=== PATIENT | male | born 1970 | race Caucasian/White ===

== ENCOUNTER 2020-08-29 20:39 | Observation (INO) ==
[2020-08-29 21:50] LABS: Basophils # 0.1 K/mcL (0.0-0.2); Basophils % 0.6 %; Eosinophils # 0.1 K/mcL (0.0-0.6); Eosinophils % 1.2 %; Hemoglobin 15.2 g/dL (12.9-16.9); Immature Granulocytes % 0.4 % (0-4); Lymphocytes # 3.6 K/mcL (0.6-4.6); Lymphocytes % 36.3 %; Mean Corpuscular HGB Conc 34.5 g/dL (31.6-35.5); Mean Corpuscular Hemoglobin 32.4 pg (28.0-33.3); Mean Corpuscular Volume 93.8 fL (83.0-100.0); Mean Platelet Volume 10.7 fL (9.4-12.4); Monocytes # 0.5 K/mcL (0.0-1.3); Neutrophils # 5.7 K/mcL (1.6-8.9); Platelet Count 153 K/mcL (140-400); Red Blood Count 4.69 M/mcL (4.19-5.50); Red Cell Distribution Width 14.3 % (11.5-14.5); Segmented Neutrophils % 56.5 %
[2020-08-29 21:51] LABS: INR 1.2; Prothrombin Time 13.5 Seconds (9.4-12.1)
[2020-08-29 21:54] LABS: Activated Partial Thrombo Time 29.5 Seconds (26.0-36.0)
[2020-08-29] MEDS ORDERED: Aspirin 325 MG TABLET PO ONE (22:10)
[2020-08-29] MEDS ORDERED: Orphenadrine 100 MG TABLET.ER PO ONE (22:10)
[2020-08-29 22:12] LABS: BUN/Creatinine Ratio 13 (6-26); Blood Urea Nitrogen 11 mg/dL (6-20); Calcium 8.8 mg/dL (8.6-10.3); Carbon Dioxide 26 mEq/L (23-29); Chloride 102 mEq/L (98-107); Glucose 109 mg/dL (70-105); Osmolality,Calculated 280 (280-300); Potassium 3.6 mEq/L (3.5-5.1); Sodium 135 mEq/L (136-145); Troponin I < 0.03 ng/mL (< 0.04); eGFR For African Americans > 60 (> 60); eGFR For Non-African Americans > 60 (> 60)
[2020-08-30] MEDS ORDERED: Naloxone 0.4 MG/ML INJ IVP PRN (00:56)
[2020-08-30] MEDS ORDERED: Acetaminophen 325 MG TABLET PO PRN (00:56)
[2020-08-30] MEDS ORDERED: Ondansetron 4 MG/2 ML VIAL IVP PRN (00:56)
[2020-08-30] MEDS: Nitroglycerin 0.4 MG TAB.SUBL SL PRN ×3 (02:07→02:19)
[2020-08-30] MEDS: Morphine Sulfate 2 MG/ML SYRINGE IVP PRN ×2 (02:30→11:56)
[2020-08-30 05:33] LABS: Hematocrit 42.2 % (37.5-50.1); Hemoglobin 14.2 g/dL (12.9-16.9); Mean Corpuscular HGB Conc 33.6 g/dL (31.6-35.5); Mean Corpuscular Hemoglobin 32.4 pg (28.0-33.3); Mean Corpuscular Volume 96.3 fL (83.0-100.0); Mean Platelet Volume 10.5 fL (9.4-12.4); Platelet Count 147 K/mcL (140-400); Red Blood Count 4.38 M/mcL (4.19-5.50); Red Cell Distribution Width 14.3 % (11.5-14.5); White Blood Count 9.6 K/mcL (4.3-11.1)
[2020-08-30 05:50] LABS: BUN/Creatinine Ratio 11 (6-26); Blood Urea Nitrogen 9 mg/dL (6-20); Calcium 8.4 mg/dL (8.6-10.3); Carbon Dioxide 26 mEq/L (23-29); Chloride 105 mEq/L (98-107); Glucose 103 mg/dL (70-105); Magnesium 1.9 mg/dL (1.6-2.6); Osmolality,Calculated 283 (280-300); Phosphorous 3.7 mg/dL (2.7-4.5); Potassium 3.8 mEq/L (3.5-5.1); Sodium 137 mEq/L (136-145); eGFR For African Americans > 60 (> 60); eGFR For Non-African Americans > 60 (> 60)
[2020-08-30 05:51] LABS: Troponin I < 0.03 ng/mL (< 0.04)
[2020-08-30] MEDS: *HR* Heparin 5,000 UNIT/ML VIAL SQ SCH ×2 (06:00→18:47)
[2020-08-30] MEDS ORDERED: Regadenoson 0.4 MG/5 ML SYRINGE IVP ONE ×2 (08:34→08:41)
[2020-08-30] MEDS ORDERED: *HR* HYDROcodone/Acet 5/325 mg TABLET PO PRN (12:05)
[2020-08-30] MEDS ORDERED: Isovue-370 500 ML BOTTLE IVP ONE (12:05)
[2020-08-30 18:58] VITALS: BP 146/88
[2020-08-30] MEDS ORDERED: Nicotine 21 MG PATCH.TD24 TD SCH (19:45)
[2020-08-30] MEDS ORDERED: tiZANidine 4 MG TABLET PO SCH (21:00)
[2020-08-31] MEDS ORDERED: PARoxetine 30 MG TABLET PO SCH (09:00)
[2020-08-31] MEDS ORDERED: Aspirin 81 MG TAB.CHEW PO SCH (09:00)
[2020-08-31] MEDS ORDERED: amLODIPine 5 MG TABLET PO SCH (09:00)
[2020-08-31] MEDS ORDERED: Folic Acid 1 MG TABLET PO SCH (09:00)
[2020-08-31] MEDS ORDERED: Valsartan 160 MG TABLET PO SCH (09:00)
[2020-08-31] MEDS ORDERED: Tiotropium 18 MCG inhalation IH SCH (10:00)
== END 2020-08-30 20:20 | disposition left against medical advice (07) ==
LOC: 2ANU 20:39 → EMEROOARM 20:39 → SUATTDRO 23:07 → 2ANU 08-30
PROVIDERS: ADMIT Family Medicine; ATTEND Internal Medicine